=== PATIENT | female | born 2000 | race Caucasian/White ===

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

== ENCOUNTER → 2022-11-06 | Outpatient (CLI) | payer OTHER ==
--- NOTE | 2022-11-06 14:50 | US ---
EXAMINATION TYPE: US pelvic complete DATE OF EXAM: 11/06/2022 COMPARISON: NONE CLINICAL INDICATION: Female, 22 years old with history of N94.1 DYSPAREUNIA; pain TECHNIQUE: Transabdominal (TA). EXAM MEASUREMENTS: Uterus: 7.5 x 2.7 x 4.6 cm Endometrial Stripe: 0.5 cm Right Ovary: 3.8 x 1.92.0 x 1.9 cm Left Ovary: 3.6 x 2.3 x 3.0 cm 1. Uterus: Anteverted wnl 2. Endometrium: wnl 3. Right Ovary: wnl 4. Left Ovary: wnl 5. Bilateral Adnexa: wnl 6. Posterior cul-de-sac: wnl IMPRESSION: 1. The endometrium is within normal limits for size. 2. No evidence for acute process.
== END | disposition home or self-care (01) ==
LOC: RADUSWWP 13:38
PROVIDERS: ATTEND Obstetrics & Gynecology
DX: N94.10 Unspecified dyspareunia (principal)
CPT/HCPCS: 76856